=== PATIENT | female | born 1970 | race Hispanic/Latino ===

== ENCOUNTER 2017-08-14 06:40 | Emergency (ER) | payer OTHER ==
[2017-08-14 06:52] VITALS: BMI 28.2
[2017-08-14 06:57] VITALS: BP 137/86; PULSE 86; RESP 16; TEMP 98; O2SAT 99
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
== END 2017-08-14 08:34 | disposition home or self-care (01) ==
LOC: H.ER 06:40
DX: S16.1XXA Strain of muscle, fascia and tendon at neck level, initial encounter (principal); V43.52XA Car driver injured in collision with other type car in traffic accident, initial encounter; Y92.410 Unspecified street and highway as the place of occurrence of the external cause
CPT/HCPCS: 96372; 99284; J1885